=== PATIENT | male | born 1965 | race Caucasian/White ===

== ENCOUNTER 2017-11-22 05:53 | Day surgery (SDC) | payer OTHER ==
[2017-11-22] MEDS ORDERED: PROPOFOL 20 ML ×2 (07:31→08:22)
[2017-11-22] MEDS ORDERED: FENTAnyl 50 MCG/ML VIAL (07:32)
[2017-11-22] MEDS ORDERED: MIDAZOLAM 1 MG/ML 2 ML INJ (07:32)
== END 2017-11-22 13:17 | disposition home or self-care (01) ==
LOC: GIL 05:53
DX: Z12.11 Encounter for screening for malignant neoplasm of colon (principal); K57.90 Diverticulosis of intestine, part unspecified, without perforation or abscess without bleeding; K64.8 Other hemorrhoids; E78.5 Hyperlipidemia, unspecified; E11.9 Type 2 diabetes mellitus without complications; I10 Essential (primary) hypertension; F17.200 Nicotine dependence, unspecified, uncomplicated
CPT/HCPCS: 45378; 82962